=== PATIENT | male | born 1960 | race Caucasian/White ===

== ENCOUNTER 2017-02-28 23:22 | Emergency (ER) | payer OTHER ==
[~2017-02-28] VITALS: Ht 193 cm; Wt 204.5 kg
[~2017-02-28 23:22] MED LIST: ALDACTAZIDE 251 EACH PO; ALDACTONE25 MG PO; APRESOLINE50 M1 PO; ASPIR 8181 M1 PO; Amoxicillin PO; CATAPRES0.2 MG PO; CLEOCIN300 MG PO; CLINDAMYCIN HC300 MG PO; CLONIDINE HCL PO; CLONIDINE HCL0.2 MG PO; CLONIDINE HCL0.3 MG PO; DAILY VALUE1 EACH PO; FLONASE16 G1 BOTH NARES; GLUCOPHAGE XR750 MG PO; HYDRALAZINE HCL50 M1 PO; INDERIDE 40/1 TABLET PO; K-DUR20 MEQ PO; LISINOPRIL20 MG PO; LONITEN2.5 MG PO; LOPRESSOR100 M1 PO; MINOXIDIL2.5 MG PO; PERCOCET 5/31 TABLET PO; PRAVASTATIN SOD40 MG PO; PRINIVIL40 MG PO; Prinivil PO; SPIRONOLACTONE-HCTZ; SPIRONOLACTONE-HCTZ PO; SPIRONOLACTONE25 MG PO; TOPROL XL100 MG PO; VALIUM5 MG PO; VIBRAMYCIN100 M2 PO; VITAMIN D31000 UNI2 PO; ZYVOX600 MG PO
[2017-03-01 00:39] LABS: POINT-OF-CARE METER ID UU13113702
[2017-03-01 01:41] LABS: BASOPHIL COUNT 0.1 K/uL (0-0.1); EOSINOPHIL (%) 2.6 % (0-5); EOSINOPHIL COUNT 0.3 K/uL (0-0.3); HEMATOCRIT 46.6 % (38.0-50.0); IMMATURE GRANULOCYTE (%) 0.4 % (0.0-0.7); LYMPHOCYTE COUNT 2.2 K/uL (1.0-2.8); MCH 28.7 PG (29.0-34.0); MCHC 33.3 G/DL (30.0-36.0); MCV 86.3 FL (86-99); MEAN PLAT.VOLUME 11.2 uM^3 (9.0-12.4); MONOCYTE (%) 11.7 % (3-12); MONOCYTE COUNT 1.1 K/uL (0-0.8); NEUTROPHIL (%) 61.9 % (45-76); PLATELET COUNT 224 K/uL (156-360); RBC DIS.WIDTH-CV 13.2 % (11.8-14.6); RBC DIS.WIDTH-SD 41.1 % (39-53); WHITE BLOOD COUNT 9.6 K/uL (4.1-10.2)
[2017-03-01 01:49] LABS: CHLORIDE 102 mEq/L (99-109); POTASSIUM 4.3 mEq/L (3.7-5.4); SODIUM 139 mEq/L (136-147)
[2017-03-01 01:50] LABS: GLUCOSE 110 mg/dL (70-99)
[2017-03-01 01:52] LABS: ANION GAP 11 MEQ/L (2-14)
[2017-03-01 01:54] LABS: GFR ESTIMATE (CALCULATED) 51 mL/min/
[2017-03-01 01:55] LABS: UREA NITROGEN (BUN) 24 mg/dL (9-23)
[2017-03-01] MEDS ORDERED: KEFLEX500 MG PO (02:28)
[2017-03-01] MEDS ORDERED: TRAMADOL HCL50 MG PO (02:28)
[2017-03-01 02:40] VITALS: BP 125/72
== END 2017-03-01 03:16 | disposition home or self-care (01) ==
LOC: EME 23:22
PROVIDERS: Emergency Medicine
DX: L03.115 Cellulitis of right lower limb (principal); E11.9 Type 2 diabetes mellitus without complications; M17.11 Unilateral primary osteoarthritis, right knee; Z88.2 Allergy status to sulfonamides; Z88.1 Allergy status to other antibiotic agents
CPT/HCPCS: 73564; 73590; 80048; 82948; 85025; 93971; 99281; 99285

== ENCOUNTER 2018-04-13 19:15 | Emergency (ER) | payer OTHER ==
[~2018-04-13] VITALS: Ht 195.6 cm; Wt 208.3 kg
[~2018-04-13 19:15] MED LIST changes: +KEFLEX500 MG PO; +TRAMADOL HCL50 MG PO
[2018-04-13 21:12] LABS: HEMATOCRIT 47.1 % (38.0-50.0); HEMOGLOBIN 16.2 G/DL (12.5-16.6); MCH 30.2 PG (29.0-34.0); MCHC 34.4 G/DL (30.0-36.0); MCV 87.9 FL (86-99); PLATELET COUNT 200 K/uL (156-360); RBC DIS.WIDTH-CV 12.9 % (11.8-14.6); RBC DIS.WIDTH-SD 41.6 % (39-53); RED BLOOD COUNT 5.36 M/uL (4.00-5.50)
[2018-04-13 21:20] LABS: ALBUMIN 4.1 g/dL (3.2-4.8); CHLORIDE 101 mEq/L (99-109); POTASSIUM 4.1 mEq/L (3.7-5.4); SODIUM 137 mEq/L (136-147)
[2018-04-13 21:23] LABS: GLUCOSE 125 mg/dL (70-99); TOTAL PROTEIN 7.9 g/dL (6.4-8.3)
[2018-04-13 21:26] LABS: ALKALINE PHOSPHATASE 55 IU/L (3-129); CREATININE 1.2 mg/dL (0.6-1.3); GFR ESTIMATE (CALCULATED) > 59 mL/min/ (58.99-99999)
[2018-04-13 21:27] LABS: UREA NITROGEN (BUN) 20 mg/dL (9-23)
[2018-04-13 21:28] LABS: AST (GOT) 27 IU/L (2-34)
[2018-04-13 21:29] LABS: ALT (GPT) 37 IU/L (3-49)
[2018-04-13] MEDS ORDERED: CLEOCIN300 MG PO (22:09)
[2018-04-13 22:19] VITALS: BP 121/62
== END 2018-04-13 22:22 | disposition home or self-care (01) ==
LOC: EME 19:15
PROVIDERS: Physician Assistant
DX: L03.116 Cellulitis of left lower limb (principal); E11.51 Type 2 diabetes mellitus with diabetic peripheral angiopathy without gangrene; E78.5 Hyperlipidemia, unspecified; I10 Essential (primary) hypertension; G47.30 Sleep apnea, unspecified; M41.9 Scoliosis, unspecified; E66.01 Morbid (severe) obesity due to excess calories; Z68.43 Body mass index [BMI] 50.0-59.9, adult; K76.0 Fatty (change of) liver, not elsewhere classified; Z87.891 Personal history of nicotine dependence; Z79.84 Long term (current) use of oral hypoglycemic drugs; Z79.82 Long term (current) use of aspirin; Z88.2 Allergy status to sulfonamides; Z88.0 Allergy status to penicillin
CPT/HCPCS: 73590; 80053; 83605; 85027; 87040; 99281; 99284

== ENCOUNTER 2018-04-21 22:39 | Emergency (ER) | payer OTHER ==
[~2018-04-21] VITALS: Ht 193 cm; Wt 208.4 kg
[2018-04-21] MEDS ORDERED: KEFLEX500 MG PO (23:59)
[2018-04-22 00:22] VITALS: BP 136/65
== END 2018-04-22 00:23 | disposition home or self-care (01) ==
LOC: EME 22:39
DX: R21 Rash and other nonspecific skin eruption (principal); T36.8X5A Adverse effect of other systemic antibiotics, initial encounter; L03.116 Cellulitis of left lower limb; E11.9 Type 2 diabetes mellitus without complications; E78.5 Hyperlipidemia, unspecified; M19.90 Unspecified osteoarthritis, unspecified site; M41.9 Scoliosis, unspecified; G47.30 Sleep apnea, unspecified; E66.01 Morbid (severe) obesity due to excess calories; Z79.84 Long term (current) use of oral hypoglycemic drugs; Z79.82 Long term (current) use of aspirin; Z87.891 Personal history of nicotine dependence; Z87.2 Personal history of diseases of the skin and subcutaneous tissue; Z87.39 Personal history of other diseases of the musculoskeletal system and connective tissue; Z91.048 Other nonmedicinal substance allergy status; Z88.2 Allergy status to sulfonamides; Z88.0 Allergy status to penicillin; Z88.8 Allergy status to other drugs, medicaments and biological substances
CPT/HCPCS: 99281; 99283; J1100